=== PATIENT | male | born 1995 | race Two or more races ===

== ENCOUNTER 2024-01-29 08:23 | Emergency (ER) | payer MEDICAID ==
[~2024-01-29] VITALS: Ht 154.9 cm; Wt 75.6 kg
[2024-01-29 08:45] VITALS: TEMP 99.5
[2024-01-29 09:30] LABS: BASOPHILS % (AUTO) 0.2 % (0.0-2.0); EOSINOPHILS % (AUTO) 0.2 % (1.0-6.0); HEMOGLOBIN 16.5 g/dL (13.5-17.5); LYMPHOCYTES # (AUTO) 0.9 K/uL (1.0-4.8); LYMPHOCYTES % (AUTO) 10.2 % (22.0-44.0); MEAN CORPUSCULAR HEMOGLOBIN 30.7 pg (26.0-34.0); MEAN CORPUSCULAR HGB CONC 35.2 G/dL (31.0-37.0); MEAN CORPUSCULAR VOLUME 87 fL (80-100); MONOCYTES # (AUTO) 0.5 K/uL (0.1-1.0); MONOCYTES % (AUTO) 5.7 % (2.0-9.0); NEUTROPHILS # (AUTO) 7.7 K/uL (1.8-7.7); NEUTROPHILS % (AUTO) 83.7 % (40.0-70.0); PLATELET COUNT (AUTO) 242 K/uL (150-450); RED BLOOD CELL COUNT(AUTO) 5.39 MIL/uL (4.50-5.90); RED CELL DISTRIBUTION WIDTH 13.2 % (11.5-14.5); WHITE BLOOD COUNT (AUTO) 9.2 K/uL (4.5-11.0)
[2024-01-29 09:42] LABS: CALCIUM, TOTAL 9.8 mg/dL (8.8-10.5); CARBON DIOXIDE 28 mmol/L (22-29); CHLORIDE 100 mmol/L (98-107); CREATININE 0.89 mg/dL (0.60-1.30); GLOMERULAR FILTR. RATE CALC > 60 mL/min (>60); GLUCOSE,RANDOM 112 mg/dL (70-110); LIPASE 24 U/L (16-77); UREA NITROGEN, BLOOD 10 mg/dL (7-18)
[2024-01-29 09:47] LABS: ANION GAP 9 mmol/L (8-16); POTASSIUM 5.4 mmol/L (3.5-5.1); SODIUM SERUM 137 mmol/L (136-145)
[2024-01-29] MEDS: ONDANSETRON HCL 4 MG/2 ML VIAL IVP ONE (10:00)
[2024-01-29] MEDS: SODIUM CHLORIDE 0.9% 2,000 ML IV ONE (10:00)
[2024-01-29] MEDS: ACETAMINOPHEN 500 MG TABLET PO ONE (10:00)
[2024-01-29 10:13] LABS: ALANINE AMINOTRANSFERASE 48 U/L (12-78); ALBUMIN 4.6 g/dL (3.4-5.0); ALKALINE PHOSPHATASE 61 U/L (46-116); ASPARTATE AMINOTRANSFERASE 22 U/L (15-37); BILIRUBIN,TOTAL 0.5 mg/dL (0.1-1.0); TOTAL PROTEIN, SERUM 8.1 g/dL (6.4-8.2)
[2024-01-29 10:47] LABS: APPEARANCE,URINE CLEAR (CLEAR); BILIRUBIN,URINE NEGATIVE (NEGATIVE); COLOR,URINE COLORLESS (YELLOW); GLUCOSE, URINE (UA) NEGATIVE (NEGATIVE); KETONES,URINE TRACE mg/dL (NEGATIVE); LEUKOCYTE ESTERASE ,URINE NEGATIVE (NEGATIVE); NITRATE,URINE NEGATIVE (NEGATIVE); OCCULT BLOOD,URINE NEGATIVE (NEGATIVE); PROTEIN,URINE NEGATIVE (NEGATIVE); SPECIFIC GRAVITIY, URINE 1.011 (1.003-1.030); UROBILINOGEN,URINE <=1.0 mg/dL (<=1.0)
[2024-01-29] MEDS ORDERED: ACET-66 PO (12:36)
[2024-01-29] MEDS ORDERED: ONDA-104 PO (12:36)
[2024-01-29 13:00] VITALS: BP 127/82; PULSE 67; RESP 18; O2SAT 99
== END 2024-01-29 14:21 | disposition home or self-care (01) ==
LOC: EMS 08:23
DX: K52.9 Noninfective gastroenteritis and colitis, unspecified (principal); R53.1 Weakness; R11.10 Vomiting, unspecified
CPT/HCPCS: 99283; 96374; 96361; 80048; 80076; 81003; 83690; 85025; 36415; J2405; J7030

== ENCOUNTER 2024-02-23 07:46 | Emergency (ER) | payer MEDICAID ==
[~2024-02-23] VITALS: Ht 162.6 cm; Wt 70.5 kg
[~2024-02-23 07:46] MED LIST: ACET-66 PO; ONDA-104 PO
[2024-02-23 07:52] VITALS: TEMP 98.1
[2024-02-23 10:02] LABS: BASOPHILS % (AUTO) 0.3 % (0.0-2.0); EOSINOPHILS % (AUTO) 0.2 % (1.0-6.0); HEMOGLOBIN 16.4 g/dL (13.5-17.5); LYMPHOCYTES # (AUTO) 1.6 K/uL (1.0-4.8); LYMPHOCYTES % (AUTO) 22.4 % (22.0-44.0); MEAN CORPUSCULAR HEMOGLOBIN 30.3 pg (26.0-34.0); MEAN CORPUSCULAR HGB CONC 34.3 G/dL (31.0-37.0); MEAN CORPUSCULAR VOLUME 88 fL (80-100); MONOCYTES # (AUTO) 0.4 K/uL (0.1-1.0); NEUTROPHILS # (AUTO) 5.1 K/uL (1.8-7.7); NEUTROPHILS % (AUTO) 71.1 % (40.0-70.0); PLATELET COUNT (AUTO) 262 K/uL (150-450); RED BLOOD CELL COUNT(AUTO) 5.44 MIL/uL (4.50-5.90); RED CELL DISTRIBUTION WIDTH 12.9 % (11.5-14.5); WHITE BLOOD COUNT (AUTO) 7.2 K/uL (4.5-11.0)
[2024-02-23 10:10] LABS: ANION GAP 12 mmol/L (8-16); CALCIUM, TOTAL 9.5 mg/dL (8.8-10.5); CARBON DIOXIDE 28 mmol/L (22-29); CHLORIDE 102 mmol/L (98-107); CREATININE 0.72 mg/dL (0.60-1.30); GLOMERULAR FILTR. RATE CALC > 60 mL/min (>60); GLUCOSE,RANDOM 106 mg/dL (70-110); POTASSIUM 3.8 mmol/L (3.5-5.1); SODIUM SERUM 142 mmol/L (136-145); UREA NITROGEN, BLOOD 11 mg/dL (7-18)
[2024-02-23 10:17] LABS: ALANINE AMINOTRANSFERASE 55 U/L (12-78); ALBUMIN 4.4 g/dL (3.4-5.0); ALKALINE PHOSPHATASE 65 U/L (46-116); ASPARTATE AMINOTRANSFERASE 22 U/L (15-37); BILIRUBIN,TOTAL 0.6 mg/dL (0.1-1.0); LIPASE 21 U/L (16-77)
[2024-02-23 10:45] LABS: APPEARANCE,URINE CLEAR (CLEAR); BILIRUBIN,URINE NEGATIVE (NEGATIVE); COLOR,URINE COLORLESS (YELLOW); GLUCOSE, URINE (UA) NEGATIVE (NEGATIVE); KETONES,URINE NEGATIVE (NEGATIVE); LEUKOCYTE ESTERASE ,URINE NEGATIVE (NEGATIVE); NITRATE,URINE NEGATIVE (NEGATIVE); OCCULT BLOOD,URINE NEGATIVE (NEGATIVE); PROTEIN,URINE NEGATIVE (NEGATIVE); SPECIFIC GRAVITIY, URINE 1.012 (1.003-1.030); UROBILINOGEN,URINE <=1.0 mg/dL (<=1.0)
[2024-02-23] MEDS: FAMOTIDINE 20 MG TABLET PO ONE (10:54)
[2024-02-23] MEDS: MAG HYDROX/ALUMINUM HYD/SIMETH 30 ML SUSPENSION UDCUP PO ONE (10:54)
[2024-02-23 12:50] VITALS: BP 124/80; PULSE 67; RESP 18; O2SAT 99
[2024-02-23] MEDS ORDERED: FAMO20 PO (12:50)
[2024-02-23] MEDS ORDERED: POLY17PO47 PO (12:53)
== END 2024-02-23 13:07 | disposition home or self-care (01) ==
LOC: EMS 07:55
DX: K21.9 Gastro-esophageal reflux disease without esophagitis (principal); H93.13 Tinnitus, bilateral
CPT/HCPCS: 74018; 80048; 80076; 81003; 83690; 85025; 99284; 36415-L1; 36415-TC

== ENCOUNTER 2024-06-21 13:34 | Emergency (ER) | payer MEDICAID, OTHER ==
[~2024-06-21] VITALS: Ht 154.9 cm; Wt 72.0 kg
[~2024-06-21 13:34] MED LIST changes: -ACET-66 PO; +FAMO20 PO; -ONDA-104 PO; +POLY17PO47 PO
[2024-06-21 14:15] VITALS: TEMP 97.1
[2024-06-21 15:17] LABS: APPEARANCE,URINE TURBID (CLEAR); BILIRUBIN,URINE NEGATIVE (NEGATIVE); COLOR,URINE YELLOW (YELLOW); GLUCOSE, URINE (UA) NEGATIVE (NEGATIVE); KETONES,URINE NEGATIVE (NEGATIVE); LEUKOCYTE ESTERASE ,URINE NEGATIVE (NEGATIVE); NITRATE,URINE NEGATIVE (NEGATIVE); OCCULT BLOOD,URINE NEGATIVE (NEGATIVE); PH,URINE 7.5 (5.0-8.0); PROTEIN,URINE NEGATIVE (NEGATIVE); SPECIFIC GRAVITIY, URINE 1.023 (1.003-1.030); UROBILINOGEN,URINE <=1.0 mg/dL (<=1.0)
[2024-06-21] MEDS: METHOCARBAMOL 500 MG TABLET PO ONE (16:00)
[2024-06-21] MEDS: KETOROLAC TROMETHAMINE 30 MG/ML VIAL IM ONE (16:01)
[2024-06-21] MEDS: DEXAMETHASONE 4 MG TABLET PO ONE (17:08)
[2024-06-21] MEDS ORDERED: METH-812 PO (17:39)
[2024-06-21] MEDS ORDERED: IBUP-1492 PO (17:39)
[2024-06-21 18:18] VITALS: BP 115/67; PULSE 67; RESP 17; O2SAT 98
== END 2024-06-21 18:27 | disposition home or self-care (01) ==
LOC: EMS 13:39
DX: S39.011A Strain of muscle, fascia and tendon of abdomen, initial encounter (principal); R30.0 Dysuria; X58.XXXA Exposure to other specified factors, initial encounter; Y93.89 Activity, other specified; Y92.89 Other specified places as the place of occurrence of the external cause; Y99.8 Other external cause status
CPT/HCPCS: 99283; 81003; 96372; J1885; J8540

== ENCOUNTER 2024-12-11 10:44 | Emergency (ER) | payer OTHER ==
[~2024-12-11] VITALS: Ht 154.9 cm; Wt 72.0 kg
[~2024-12-11 10:44] MED LIST changes: +IBUP-1492 PO; +METH-812 PO
[2024-12-11 10:49] VITALS: TEMP 98.8
[2024-12-11 11:23] LABS: APPEARANCE,URINE CLEAR (CLEAR); GLUCOSE, URINE (UA) NEGATIVE (NEGATIVE); LEUKOCYTE ESTERASE ,URINE NEGATIVE (NEGATIVE); NITRATE,URINE NEGATIVE (NEGATIVE); OCCULT BLOOD,URINE NEGATIVE (NEGATIVE); SPECIFIC GRAVITIY, URINE 1.011 (1.003-1.030)
[2024-12-11] MEDS: AZITHROMYCIN 500 MG TABLET PO ONE (12:17)
[2024-12-11] MEDS: LIDOCAINE/PF 1% 2 ML VIAL IM ONE (12:18)
[2024-12-11] MEDS: CefTRIAXone SODIUM 1 GM/VIAL IM ONE (12:18)
[2024-12-11 12:30] VITALS: BP 122/77; PULSE 75; RESP 18; O2SAT 100
== END 2024-12-11 14:02 | disposition home or self-care (01) ==
LOC: EMS 11:28
DX: N34.2 Other urethritis (principal); R36.9 Urethral discharge, unspecified
CPT/HCPCS: 99285; 81003; 76870; 96372; J0456; J0696; J3490